=== PATIENT | female | born 1950 | race African-American/Black ===

== ENCOUNTER 2022-10-02 10:01 | Inpatient (IN) | payer OTHER ==
[~2022-10-02] VITALS: Ht 162.6 cm; Wt 88.3 kg
[2022-10-02 10:51] LABS: BASOPHILS % (AUTO) 0.2 % (0-1); EOSINOPHILS # (AUTO) 0.1 X10'3 (0-0.9); EOSINOPHILS % (AUTO) 0.7 % (0-6); HEMATOCRIT 37.6 % (35.0-45.0); HEMOGLOBIN 12.5 g/dl (12.0-16.0); LYMPHOCYTES # (AUTO) 1.3 X10'3 (1.1-4.8); LYMPHOCYTES % (AUTO) 12.1 % (21-51); MEAN CORPUSCULAR HEMOGLOBIN 29.9 PG (27.0-31.0); MEAN CORPUSCULAR HGB CONC 33.3 g/dL (33.0-36.5); MEAN CORPUSCULAR VOLUME 89.8 FL (78-98); MEAN PLATELET VOLUME 10.2 FL (7.4-10.4); MONOCYTES # (AUTO) 0.5 X10'3 (0-0.9); NEUTROPHILS # (AUTO) 8.9 X10'3 (1.8-7.7); PLATELET COUNT 248 X10'3 (140-440); RED BLOOD COUNT 4.19 X10'6 (4.20-5.60); RED CELL DISTRIBUTION WIDTH 14.5 % (11.5-14.5); WHITE BLOOD COUNT 10.8 X10'3 (4.5-11.0)
[2022-10-02 11:02] LABS: ALANINE AMINOTRANSFERASE 71 U/L (12-78); ALBUMIN 3.8 G/DL (3.4-5.0); ALKALINE PHOSPHATASE 68 IU/L (46-116); ANION GAP 7 (8-16); ASPARTATE AMINO TRANSFERASE 41 U/L (10-37); BILIRUBIN,TOTAL 1.1 MG/DL (0.1-1.0); BLOOD UREA NITROGEN 20 MG/DL (7-18); BUN/CREATININE RATIO 19.6 (10.0-20.0); CALCIUM 9.1 MG/DL (8.5-10.1); CHLORIDE 105 MMOL/L (99-107); CREATININE 1.02 MG/DL (0.40-0.90); GLUCOSE 153 MG/DL (70-104); POTASSIUM 3.1 MMOL/L (3.5-5.1); SODIUM 140 MMOL/L (135-145); TOTAL CARBON DIOXIDE 28.1 MMOL/L (24-32); TOTAL PROTEIN 7.8 G/DL (6.4-8.2); eGFR 54 ML/MIN
[2022-10-02] MEDS ORDERED: iohexol 350MG/ML 100ml bottle IV ONE (12:38)
[2022-10-02] MEDS: MESSAGE TO NURSING PO NR (13:11)
[2022-10-02] MEDS ORDERED: METF-436 PO (14:32)
[2022-10-02] MEDS ORDERED: AMLO5TAB PO (14:32)
[2022-10-02] MEDS ORDERED: ASCO500C18 PO (14:33)
[2022-10-02] MEDS ORDERED: [UNRECOGNIZED DRUG - OTHER] PO (14:33)
[2022-10-02] MEDS ORDERED: CHOL100025 PO (14:34)
[2022-10-02] MEDS ORDERED: LACT1CAP65 PO (14:34)
[2022-10-02] MEDS ORDERED: ELDE350C PO (14:35)
[2022-10-02] MEDS ORDERED: ALOE1CAP PO (14:35)
[2022-10-02] MEDS ORDERED: ALOE VERA LIQUID PO (14:38)
[2022-10-02] MEDS ORDERED: morphine 2 MG/ML inj. syringe IV PRN (14:40)
[2022-10-02] MEDS ORDERED: magnesium hydroxide 30ml (MOM) UD suspension PO PRN (14:40)
[2022-10-02] MEDS ORDERED: magnesium 4gm in 100ml NS 100 ML IV PRN (14:40)
[2022-10-02] MEDS ORDERED: HYDROcodone/acetaminophen 5mg/325mg tablet PO PRN (14:40)
[2022-10-02] MEDS ORDERED: magnesium 2GM in 50ml NS 50 ML IV PRN (14:40)
[2022-10-02] MEDS ORDERED: mag hydrox/Alum hydrox/simeth 30ml oral suspension PO PRN (14:40)
[2022-10-02] MEDS ORDERED: potassium Cl 20 mEq SR tablet PO PRN (14:40)
[2022-10-02] MEDS ORDERED: acetaminophen 325mg tablet PO PRN (14:40)
[2022-10-02] MEDS ORDERED: ondansetron/PF 4mg/2ml inj IV PRN (14:40)
[2022-10-02] MEDS ORDERED: potassium Cl 40MEQ/1/2NS 520ml 520 ML IV PRN (14:40)
[2022-10-02] MEDS ORDERED: magnesium Cl slow-release 64mg tablet PO PRN ×2 (14:40)
[2022-10-02] MEDS ORDERED: hydrALAZINE 20mg/ml inj. IV PRN (14:40)
--- NOTE | 2022-10-02 14:50 | NUR ---
REPORTED ELEVATED BP TO PA. JENNIFER, NO NEW ORDERS.
[2022-10-02] MEDS ORDERED: nitroGLYCERIN-Tridil 50MG/D5W 250 ML IV PRN (17:35)
--- NOTE | 2022-10-02 18:15 | NUR ---
HOSPITALIST PAGED, WILL REPORT PT CONTINUED ELEVATED BP AND PT HAS RECEIVED PRN
[2022-10-02] MEDS ORDERED: furosemide 10 MG/1 ML 10ml inj IV ONE (18:40)
[2022-10-02] MEDS ORDERED: potassium Cl 20 mEq SR tablet PO STA (18:40)
[2022-10-02] MEDS: K and/or MAG REPLACEMENT MC SCH (20:00)
[2022-10-02] MEDS: docusate sod 100mg capsule PO SCH (20:19)
[2022-10-02] MEDS: enoxaparin 40mg/0.4ml syringe SQ SCH (20:20)
[2022-10-03] VITALS (16 sets, daily range): BP systolic 110–158; BP diastolic 66–87
[2022-10-03] MEDS: potassium Cl 20 mEq SR tablet PO PRN ×2 (00:35→06:41)
[2022-10-03 03:19] LABS: BASOPHILS % (AUTO) 0.3 % (0-1); EOSINOPHILS # (AUTO) 0.1 X10'3 (0-0.9); EOSINOPHILS % (AUTO) 0.4 % (0-6); HEMATOCRIT 35.9 % (35.0-45.0); HEMOGLOBIN 11.9 g/dl (12.0-16.0); LYMPHOCYTES % (AUTO) 6.9 % (21-51); MEAN CORPUSCULAR HEMOGLOBIN 29.5 PG (27.0-31.0); MEAN CORPUSCULAR HGB CONC 33.3 g/dL (33.0-36.5); MEAN CORPUSCULAR VOLUME 88.7 FL (78-98); MEAN PLATELET VOLUME 10.3 FL (7.4-10.4); MONOCYTES # (AUTO) 1.2 X10'3 (0-0.9); MONOCYTES % (AUTO) 7.9 % (2-12); NEUTROPHILS # (AUTO) 12.4 X10'3 (1.8-7.7); NEUTROPHILS % (AUTO) 84.5 % (42-75); PLATELET COUNT 225 X10'3 (140-440); RED BLOOD COUNT 4.05 X10'6 (4.20-5.60); RED CELL DISTRIBUTION WIDTH 14.1 % (11.5-14.5); WHITE BLOOD COUNT 14.7 X10'3 (4.5-11.0)
[2022-10-03 03:40] LABS: ALANINE AMINOTRANSFERASE 67 U/L (12-78); ALBUMIN 3.7 G/DL (3.4-5.0); ALKALINE PHOSPHATASE 66 IU/L (46-116); ANION GAP 10 (8-16); ASPARTATE AMINO TRANSFERASE 43 U/L (10-37); BILIRUBIN,TOTAL 1.6 MG/DL (0.1-1.0); BLOOD UREA NITROGEN 16 MG/DL (7-18); BUN/CREATININE RATIO 17.4 (10.0-20.0); CALCIUM 8.8 MG/DL (8.5-10.1); CHLORIDE 104 MMOL/L (99-107); CREATININE 0.92 MG/DL (0.40-0.90); GLUCOSE 130 MG/DL (70-104); MAGNESIUM 1.5 MG/DL (1.5-2.4); POTASSIUM 3.2 MMOL/L (3.5-5.1); SODIUM 140 MMOL/L (135-145); TOTAL CARBON DIOXIDE 26.4 MMOL/L (24-32); TOTAL PROTEIN 7.4 G/DL (6.4-8.2); eGFR 73 ML/MIN
[2022-10-03] MEDS: docusate sod 100mg capsule PO SCH ×2 (06:40→20:51)
[2022-10-03] MEDS: K and/or MAG REPLACEMENT MC SCH ×2 (08:00→20:00)
[2022-10-03] MEDS: furosemide 10 MG/1 ML 10ml inj IV SCH (09:12)
[2022-10-03] MEDS: amLODIPine 5mg tablet PO SCH (09:13)
[2022-10-03] MEDS: metoprolol tartrate 50mg tablet PO SCH ×2 (09:13→20:52)
--- NOTE | 2022-10-03 09:43 | NUR ---
Pt on nitroglycerin gtt @ 55 mcg/min. BP elevated at 160s-170s mmHg. RN notified Dr. Aggarwal. Per MD MCKENZIE to administer amlodipine and metoprolol per eMAR and continue nitroglycerin gtt. Continue to monitor. RN administered. Additionally, K+ was 3.2 this AM. Pt has received full oral replacement. Per MAGALY MOSQUEDA to proceed with IV lasix. RN administered. Addendum: 10/03/22 at 1133 by IRAM K+ recheck ordered
[2022-10-03] MEDS: MESSAGE TO NURSING PO NR (10:00)
--- NOTE | 2022-10-03 10:17 | NUR ---
ALEXANDRU paged Dr. Aggarwal at 1017: "ER-Jamaal Andrade - PCU cannot take nitro gtt unless rate is 30 mcg/mn and non-titratable. Consider changing order? BP currently 143 mmHg on 55 mcg/mn. - ALEXANDRU Guy [phone]" Addendum: 10/03/22 at 1029 by IRAM returned call. SBP now 143 mmHg. Per ALEXANDRU MOSQUEDA to change Nitroglycerin gtt order to reflect 30 mcg/min and non-titrateable per PCU protocol. ALEXANDRU modified order per LARA.
[2022-10-03] MEDS ORDERED: nitroGLYCERIN-Tridil 50MG/D5W 250 ML IV PRN ×2 (10:25→11:27)
--- NOTE | 2022-10-03 11:31 | NUR ---
Pt transferred to PCU 3012 Laly Mcguire RN updated on pt's status, including change in nitroglycerin gtt rate from 55 mcg/min to 30 mcg/min. Most recent SBP is 148. Pt stable upon arrival to receiving unit.
--- NOTE | 2022-10-03 11:33 | NUR ---
Pt has $415 locked in safe per report. Belongings tag stapled to pt's chart. Chart sent to PCU.
--- NOTE | 2022-10-03 11:40 | NUR ---
Patient in room U 3012. I have received report from Brooks HORVATH and had the opportunity to ask questions and assume patient care. Pt settled into room, Orientated to room. Denies needs NTG infusing 30mcg/min. Addendum: 10/03/22 at 1148 by Joselyn Tuttle RN Amended: Links added.
--- NOTE | 2022-10-03 18:26 | NUR ---
Problems reprioritized. Patient report given, questions answered & plan of care reviewed with Chet HORVATH. Bedside report completed.Pt relaxing, eating dinner. Call light in reach. Addendum: 10/03/22 at 1827 by Joselyn Tuttle RN Amended: Links added.
[2022-10-03] MEDS: enoxaparin 40mg/0.4ml syringe SQ SCH (20:54)
[2022-10-03] MEDS: diphenhydrAMINE 25mg capsule PO PRN (21:07)
[2022-10-04] VITALS (15 sets, daily range): BP systolic 123–177; BP diastolic 70–99
[2022-10-04 06:34] LABS: BASOPHILS % (AUTO) 0.2 % (0-1); EOSINOPHILS # (AUTO) 0.1 X10'3 (0-0.9); EOSINOPHILS % (AUTO) 0.9 % (0-6); HEMATOCRIT 34.4 % (35.0-45.0); HEMOGLOBIN 11.3 g/dl (12.0-16.0); LYMPHOCYTES # (AUTO) 1.2 X10'3 (1.1-4.8); LYMPHOCYTES % (AUTO) 8.3 % (21-51); MEAN CORPUSCULAR HEMOGLOBIN 29.8 PG (27.0-31.0); MEAN CORPUSCULAR HGB CONC 32.7 g/dL (33.0-36.5); MEAN CORPUSCULAR VOLUME 91.1 FL (78-98); MEAN PLATELET VOLUME 10.6 FL (7.4-10.4); MONOCYTES # (AUTO) 1.5 X10'3 (0-0.9); NEUTROPHILS # (AUTO) 11.2 X10'3 (1.8-7.7); NEUTROPHILS % (AUTO) 79.6 % (42-75); PLATELET COUNT 206 X10'3 (140-440); RED BLOOD COUNT 3.78 X10'6 (4.20-5.60); RED CELL DISTRIBUTION WIDTH 14.4 % (11.5-14.5)
[2022-10-04 06:51] LABS: ALANINE AMINOTRANSFERASE 47 U/L (12-78); ALBUMIN 3.3 G/DL (3.4-5.0); ALBUMIN/GLOBULIN RATIO 0.9 (1.1-1.5); ALKALINE PHOSPHATASE 64 IU/L (46-116); ANION GAP 10 (8-16); ASPARTATE AMINO TRANSFERASE 30 U/L (10-37); BILIRUBIN,TOTAL 1.2 MG/DL (0.1-1.0); BLOOD UREA NITROGEN 25 MG/DL (7-18); BUN/CREATININE RATIO 22.3 (10.0-20.0); CALCIUM 8.9 MG/DL (8.5-10.1); CHLORIDE 103 MMOL/L (99-107); CREATININE 1.12 MG/DL (0.40-0.90); GLUCOSE 131 MG/DL (70-104); MAGNESIUM 1.6 MG/DL (1.5-2.4); POTASSIUM 3.3 MMOL/L (3.5-5.1); SODIUM 140 MMOL/L (135-145); TOTAL CARBON DIOXIDE 26.8 MMOL/L (24-32); TOTAL PROTEIN 7.1 G/DL (6.4-8.2); eGFR 58 ML/MIN
[2022-10-04] MEDS: K and/or MAG REPLACEMENT MC SCH ×2 (08:00→20:00)
[2022-10-04] MEDS: docusate sod 100mg capsule PO SCH ×2 (09:01→20:00)
[2022-10-04] MEDS: furosemide 10 MG/1 ML 10ml inj IV SCH (09:01)
[2022-10-04] MEDS: amLODIPine 5mg tablet PO SCH (09:03)
[2022-10-04] MEDS: metoprolol tartrate 50mg tablet PO SCH ×2 (09:04→21:37)
[2022-10-04] MEDS: MESSAGE TO NURSING PO NR (10:00)
[2022-10-04] MEDS ORDERED: IOHEXOL 12MG/ML oral solution 500 ML BOTTLE PO ONE (10:30)
[2022-10-04] MEDS ORDERED: cloNIDine 0.2 MG/24 HR patch (7 day patch) TD SCH (11:00)
--- NOTE | 2022-10-04 12:06 | NUR ---
discussed and educated patient on upcoming cat scan with oral and iv contrast related to elevated liver enzymes and dx of "fatty liver" on CTA patient had yesterday. after speaking to her family, pt is refusing todays cat scan and would like to follow up with her primary care doctor after discharge. sent a page to dr barber, see below: MESSAGE: patient in room 12A spoke with family and is refusing liver cat scan - she wants to follow up with her primary care doctor. - [facility] [id number]
[2022-10-04] MEDS: HYDROchlorothiazide 25mg tablet PO SCH (13:10)
[2022-10-04] MEDS ORDERED: nitroGLYCERIN-Tridil 50MG/D5W 250 ML IV PRN (14:35)
--- NOTE | 2022-10-04 15:30 | NUR ---
nitro gtt turned off per
--- NOTE | 2022-10-04 16:09 | NUR ---
notified dr barber of patients blood pressure with nitro gtt turned off, 177/95. orders received to increase clonidine patch by .1 to .3
[2022-10-04] MEDS: enoxaparin 40mg/0.4ml syringe SQ SCH (21:39)
[2022-10-05] VITALS (9 sets, daily range): BP systolic 127–167; BP diastolic 70–129
[2022-10-05 06:55] LABS: BASOPHILS % (AUTO) 0.2 % (0-1); EOSINOPHILS # (AUTO) 0.2 X10'3 (0-0.9); EOSINOPHILS % (AUTO) 1.2 % (0-6); HEMATOCRIT 35.9 % (35.0-45.0); HEMOGLOBIN 11.6 g/dl (12.0-16.0); LYMPHOCYTES # (AUTO) 1.4 X10'3 (1.1-4.8); LYMPHOCYTES % (AUTO) 9.8 % (21-51); MEAN CORPUSCULAR HEMOGLOBIN 29.6 PG (27.0-31.0); MEAN CORPUSCULAR HGB CONC 32.4 g/dL (33.0-36.5); MEAN CORPUSCULAR VOLUME 91.4 FL (78-98); MEAN PLATELET VOLUME 10.8 FL (7.4-10.4); MONOCYTES # (AUTO) 1.4 X10'3 (0-0.9); MONOCYTES % (AUTO) 9.8 % (2-12); NEUTROPHILS # (AUTO) 10.9 X10'3 (1.8-7.7); PLATELET COUNT 213 X10'3 (140-440); RED BLOOD COUNT 3.92 X10'6 (4.20-5.60); RED CELL DISTRIBUTION WIDTH 14.8 % (11.5-14.5); WHITE BLOOD COUNT 13.8 X10'3 (4.5-11.0)
[2022-10-05 07:36] LABS: ALANINE AMINOTRANSFERASE 43 U/L (12-78); ALBUMIN 3.1 G/DL (3.4-5.0); ALBUMIN/GLOBULIN RATIO 0.8 (1.1-1.5); ALKALINE PHOSPHATASE 67 IU/L (46-116); ANION GAP 10 (8-16); ASPARTATE AMINO TRANSFERASE 25 U/L (10-37); BILIRUBIN,TOTAL 0.8 MG/DL (0.1-1.0); BLOOD UREA NITROGEN 31 MG/DL (7-18); BUN/CREATININE RATIO 30.1 (10.0-20.0); CHLORIDE 104 MMOL/L (99-107); CREATININE 1.03 MG/DL (0.40-0.90); GLUCOSE 126 MG/DL (70-104); MAGNESIUM 1.7 MG/DL (1.5-2.4); POTASSIUM 3.5 MMOL/L (3.5-5.1); SODIUM 140 MMOL/L (135-145); TOTAL CARBON DIOXIDE 25.9 MMOL/L (24-32); TOTAL PROTEIN 7.2 G/DL (6.4-8.2); eGFR 64 ML/MIN
[2022-10-05] MEDS ORDERED: ELDERBERRY FRUIT PO SCH (08:00)
[2022-10-05] MEDS ORDERED: amLODIPine 5mg tablet PO SCH (08:00)
[2022-10-05] MEDS ORDERED: [UNRECOGNIZED DRUG - OTHER] PO SCH (08:00)
[2022-10-05] MEDS ORDERED: [UNRECOGNIZED DRUG - OTHER] PO SCH (08:00)
[2022-10-05] MEDS: docusate sod 100mg capsule PO SCH ×2 (08:28→20:00)
[2022-10-05] MEDS: furosemide 10 MG/1 ML 10ml inj IV SCH (08:29)
[2022-10-05] MEDS: HYDROchlorothiazide 25mg tablet PO SCH (08:29)
[2022-10-05] MEDS: lactobacillus rhamnosus 10,000 MMU CELLS/CAPSULE PO SCH (08:29)
[2022-10-05] MEDS: metoprolol tartrate 50mg tablet PO SCH ×2 (08:29→23:16)
[2022-10-05] MEDS: cholecalciferol (vitamin D3) 1,000 unit (25mcg) tablet PO SCH (08:30)
[2022-10-05] MEDS: ascorbic acid 500mg tablet PO SCH (08:30)
[2022-10-05] MEDS: K and/or MAG REPLACEMENT MC SCH ×2 (08:31→20:00)
[2022-10-05 10:36] LABS: LARGE PLATELETS FEW; PLATELET ESTIMATE NORMAL
[2022-10-05] MEDS: amLODIPine 5mg tablet PO SCH (10:51)
--- NOTE | 2022-10-05 11:51 | NUR ---
PT AGREEABLE TO CAT SCAN TODAY. NOTIFIED CAT SCAN STAFF WELL MD. OVERNIGHT PREP TO BE ORDERED
[2022-10-05] MEDS ORDERED: diatr meglu/diatrizoate 30ml oral sol.-(3 dose) bottle PO SCH (12:00)
[2022-10-05] MEDS: enoxaparin 40mg/0.4ml syringe SQ SCH (20:00)
[2022-10-05] MEDS: diphenhydrAMINE 25mg capsule PO PRN (23:09)
[2022-10-06 03:00] VITALS: BP 136/79
[2022-10-06] MEDS: diatr meglu/diatrizoate 30ml oral sol.-(3 dose) bottle PO SCH ×3 (05:11→12:49)
[2022-10-06 07:00] VITALS: BP 140/69
[2022-10-06 07:20] LABS: BASOPHILS # (AUTO) 0.1 X10'3 (0-0.2); BASOPHILS % (AUTO) 0.4 % (0-1); EOSINOPHILS # (AUTO) 0.3 X10'3 (0-0.9); EOSINOPHILS % (AUTO) 2.8 % (0-6); HEMATOCRIT 36.8 % (35.0-45.0); LYMPHOCYTES # (AUTO) 1.5 X10'3 (1.1-4.8); LYMPHOCYTES % (AUTO) 11.7 % (21-51); MEAN CORPUSCULAR HEMOGLOBIN 29.2 PG (27.0-31.0); MEAN CORPUSCULAR HGB CONC 32.7 g/dL (33.0-36.5); MEAN CORPUSCULAR VOLUME 89.5 FL (78-98); MEAN PLATELET VOLUME 10.8 FL (7.4-10.4); MONOCYTES # (AUTO) 1.5 X10'3 (0-0.9); NEUTROPHILS # (AUTO) 9.1 X10'3 (1.8-7.7); NEUTROPHILS % (AUTO) 73.1 % (42-75); PLATELET COUNT 258 X10'3 (140-440); RED BLOOD COUNT 4.11 X10'6 (4.20-5.60); RED CELL DISTRIBUTION WIDTH 14.4 % (11.5-14.5); WHITE BLOOD COUNT 12.5 X10'3 (4.5-11.0)
--- NOTE | 2022-10-06 07:33 | NUR ---
PAGER ID: [phone] MESSAGE: [id number], Jamaal Gutierrez. Pt having 8/10 chest pain. EKG showing signs of acute LA. Paged Leydi and went to ER. ER doc didn't sign. Need someone to look at EKG. Maranda [facility] [id number].
--- NOTE | 2022-10-06 07:38 | NUR ---
PAGER ID: [phone] MESSAGE: [id number], Jamaal Gutierrez. Pt having 8/10 chest pain. EKG showing signs of acute PA. Paged Leydi and went to ER. ER doc didn't sign. Need someone to look at EKG. Maranda [facility] [id number].
[2022-10-06 07:39] LABS: ALANINE AMINOTRANSFERASE 39 U/L (12-78); ALBUMIN 3.1 G/DL (3.4-5.0); ALBUMIN/GLOBULIN RATIO 0.7 (1.1-1.5); ALKALINE PHOSPHATASE 68 IU/L (46-116); ANION GAP 9 (8-16); ASPARTATE AMINO TRANSFERASE 20 U/L (10-37); BILIRUBIN,TOTAL 0.6 MG/DL (0.1-1.0); BLOOD UREA NITROGEN 34 MG/DL (7-18); BUN/CREATININE RATIO 28.1 (10.0-20.0); CALCIUM 9.2 MG/DL (8.5-10.1); CHLORIDE 101 MMOL/L (99-107); CREATININE 1.21 MG/DL (0.40-0.90); GLUCOSE 132 MG/DL (70-104); MAGNESIUM 1.7 MG/DL (1.5-2.4); POTASSIUM 3.5 MMOL/L (3.5-5.1); SODIUM 137 MMOL/L (135-145); TOTAL CARBON DIOXIDE 27.2 MMOL/L (24-32); TOTAL PROTEIN 7.4 G/DL (6.4-8.2); eGFR 53 ML/MIN
[2022-10-06] MEDS ORDERED: amLODIPine 5mg tablet PO SCH (08:00)
[2022-10-06] MEDS: metoprolol tartrate 50mg tablet PO SCH (08:22)
[2022-10-06] MEDS: cholecalciferol (vitamin D3) 1,000 unit (25mcg) tablet PO SCH (08:22)
[2022-10-06] MEDS: ascorbic acid 500mg tablet PO SCH (08:22)
[2022-10-06] MEDS: lactobacillus rhamnosus 10,000 MMU CELLS/CAPSULE PO SCH (08:22)
[2022-10-06] MEDS: HYDROchlorothiazide 25mg tablet PO SCH (08:22)
[2022-10-06] MEDS: furosemide 10 MG/1 ML 10ml inj IV SCH (08:23)
[2022-10-06 08:28] LABS: LARGE PLATELETS MODERATE; PLATELET ESTIMATE NORMAL
[2022-10-06 08:29] VITALS: BP_SYST 140
[2022-10-06] MEDS: amLODIPine 5mg tablet PO SCH (08:29)
[2022-10-06 09:41] LABS: HBSAG SCREEN Negative (Negative); HEP A AB, IGM Negative (Negative)
[2022-10-06 09:57] LABS: CHOL/HDL RATIO 4.5 (0.00-4.99); CHOLESTEROL 196 MG/DL (0-200); HDL CHOLESTEROL 44 MG/DL (35-60); LDL CHOLESTEROL 134 MG/DL (50-100); TRIGLYCERIDES 93 MG/DL (20-135)
[2022-10-06] MEDS ORDERED: iohexol 300mg/ml 100ml inj. ONE (12:48)
[2022-10-06] MEDS ORDERED: MESSAGE TO NURSING PO NR (13:00)
[2022-10-06] MEDS ORDERED: METO50TA16 PO (14:28)
[2022-10-06] MEDS ORDERED: AZIT500T9 PO (14:28)
[2022-10-06] MEDS ORDERED: NOR5T PO (14:28)
[2022-10-06] MEDS ORDERED: HYDR25TA4 PO (14:28)
--- NOTE | 2022-10-06 17:53 | NUR ---
Pt stable for discharge per Dr. Jaffe and Cardiology. All discharge instructions reviewed with patient and all questions answered, pt verbalized understanding. New medications e-scripted to patient pharmacy/. PIV discontinued, cannula intact. Tele discontinued. All belongings collected and sent with patient. Wheeled to lobby via nursing consultant and drover herself home.
[2022-10-13 06:34] LABS: HEPATITIS C ANTIBODY Non Reactive
== END 2022-10-06 16:38 | disposition home or self-care (01) | DRG 291 ==
LOC: ER 10:02 → ED HOLD 14:46 → PCU 3S 10-03 11:25
PROVIDERS: ADMIT Internal Medicine; ATTEND Internal Medicine
PROC: B32T1ZZ Computerized Tomography (CT Scan) of Left Pulmonary Artery using Low Osmolar Contrast (ICD-10-PCS; principal; 2022-10-02)
PROC: B3201ZZ Computerized Tomography (CT Scan) of Thoracic Aorta using Low Osmolar Contrast (ICD-10-PCS; 2022-10-02)
PROC: B32S1ZZ Computerized Tomography (CT Scan) of Right Pulmonary Artery using Low Osmolar Contrast (ICD-10-PCS; 2022-10-02)
PROC: BW211ZZ Computerized Tomography (CT Scan) of Abdomen and Pelvis using Low Osmolar Contrast (ICD-10-PCS; 2022-10-06)
DX: I11.0 Hypertensive heart disease with heart failure (principal); I50.33 Acute on chronic diastolic (congestive) heart failure; I16.1 Hypertensive emergency; J98.11 Atelectasis; D64.9 Anemia, unspecified; K74.60 Unspecified cirrhosis of liver; I20.9 Angina pectoris, unspecified; J20.9 Acute bronchitis, unspecified; K76.0 Fatty (change of) liver, not elsewhere classified; K76.89 Other specified diseases of liver; G47.9 Sleep disorder, unspecified; R10.13 Epigastric pain; Z86.73 Personal history of transient ischemic attack (TIA), and cerebral infarction without residual deficits; Z79.899 Other long term (current) drug therapy
CPT/HCPCS: 36415; 71045; 71275; 74177; 76700; 80053; 80061; 80074; 83036; 83735; 83880; 84132; 84484; 85008; 85025; 87081; 93005; 93306; 99285; A6258; G0378; J0360; J1650; J1940; J3490; Q0163; Q9963; Q9967

== ENCOUNTER 2025-06-11 10:30 | Outpatient (CLI) | payer MEDICARE, MEDICAID ==
[2025-06-08 15:10] LABS: CREATININE 1.93 MG/DL (0.40-0.90); TOTAL CARBON DIOXIDE 23.7 MMOL/L (24-32); eGFR 31 ML/MIN
[~2025-06-11 10:30] MED LIST: ASPI81TA53 PO; ATOR-2 PO; CLOP75TA34 PO; EMPA10TA PO; FURO40TA4 PO; METO-395 PO; SACU1TAB PO; SPIR25TA PO
[2025-06-11] MEDS ORDERED: iohexol 350 MG/ML 50ML vial IV ONE (10:39)
--- NOTE | 2025-06-11 14:43 | RADIOLOGY REPORT ---
EXAM: CT CTA ABDOMEN LOWER EXTR RUNOFF HISTORY: ATHSCL BEAVER ARTERIES OF EXTRM W REST PAIN, BILATERAL LEGS COMPARISON: No comparison studies are available. TECHNIQUE: High resolution helical CT images of the abdomen, pelvis, and bilateral lower extremities were performed with 120 mL Omnipaque 350 IV contrast using CTA protocol. Sagittal and coronal reformatted images were not obtained. 3-D MIP reconstructions were obtained. This CT exam was performed using one or more of the following dose reduction techniques: Automated exposure control, adjustment of the mA and/or kV according to patient size, or use of iterative reconstruction technique. CT Radiation Dose: CTDI volume is 11.47 mGy. Dose-length product is 1506.15 mGy*cm. FINDINGS: Abdomen: No aneurysmal dilatation, dissection, or significant stenosis in the abdominal aorta. The celiac trunk, SMA, and [place] are patent. Renals: There are single renal arteries bilaterally. No significant renal artery stenosis. 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 Pelvis: No significant stenosis in the bilateral common, external, or internal iliac arteries. Right lower extremity: The common femoral artery, superficial femoral artery, popliteal artery, and peroneal artery are widely patent. The anterior tibial artery is completely occluded by the mid calf. There is near-complete occlusion of the posterior tibial artery proximally, although contrasted blood flow is identified in the posterior tibial artery at the level of the ankle. There is compromised 2-vessel runoff to the right ankle. Left lower extremity: The common femoral artery, superficial femoral artery, popliteal artery, and peroneal artery are widely patent. The anterior tibial artery is completely occluded by the mid calf. The posterior tibial artery is completely occluded in the proximal calf. There is single vessel runoff to the left ankle. Miscellaneous: The heart is enlarged. There are small bilateral pleural effusions. There is mild interstitial prominence in the lung bases. There is a lipoma in the right chest wall. There is a lobulated cyst in the right posterior liver. There is a nonobstructing right renal inferior pole calculusThere is moderate volume abdominopelvic ascites. There are moderate joint effusions involving the bilateral knees. There is advanced lower lumbar degenerative disc disease. There is diffuse subcutaneous edema. IMPRESSION: 1. No significant arterial stenoses are identified in the abdomen or pelvis. 2. 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 3. Cardiomegaly, bilateral small pleural effusions, and mild interstitial prominence in the lung bases is suggestive of CHF. Additionally, there is abdominopelvic ascites and diffuse subcutaneous edema suggestive of anasarca. 4. Nonobstructing right nephrolithiasis. 5. Advanced lower lumbar degenerative disc disease. 6. Overall evaluation is limited by absence of standard sagittal and coronal reformatted images.
== END 2025-06-11 23:59 | disposition home or self-care (01) ==
LOC: RAD 10:30
DX: I70.223 Atherosclerosis of native arteries of extremities with rest pain, bilateral legs (principal); E78.5 Hyperlipidemia, unspecified; J84.10 Pulmonary fibrosis, unspecified; I51.7 Cardiomegaly; J90 Pleural effusion, not elsewhere classified; M51.369 Other intervertebral disc degeneration, lumbar region without mention of lumbar back pain or lower extremity pain
CPT/HCPCS: 36415; 75635; 80048; Q9967